=== PATIENT | male | born 1950 | race Caucasian/White ===

== ENCOUNTER 2023-06-22 16:22 | Emergency (ER) | payer BC, SELFPAY ==
[2023-06-22 17:07] VITALS: BP 138/83; PULSE 110; RESP 16; TEMP 36.6; O2SAT 99
--- NOTE | 2023-06-22 17:18 | ED.SKABFB ---
HPI - Skin/Abscess/Foreign Bdy General Chief complaint: Skin/Abscess/Foreign Body Stated complaint: rash rt thigh Time Seen by Provider: 06/22/23 17:40 Source: patient and RN notes reviewed Mode of arrival: ambulatory Limitations: no limitations History of Present Illness HPI narrative: 72 year old male presents with concern for rash in his groin area. He reports it is painful and itchy. He denies fever, chills, bodyaches. He reports serous drainage. H complaint: rash Related Data Home Medications Medication Instructions Recorded Confirmed allopurinol 300 mg tablet mg 06/22/23 benazepril 20 mg tablet mg 06/22/23 ezetimibe 10 mg tablet mg 06/22/23 hydrochlorothiazide 25 mg tablet mg 06/22/23 indomethacin 50 mg capsule mg 06/22/23 pravastatin 40 mg tablet mg 06/22/23 Allergies Allergy/AdvReac Type Severity Reaction Status Date / Time Penicillins Allergy Mild Unknown Unverified 06/22/23 17:29 Review of Systems Review of Systems: CONSTITUTIONAL: Denies malaise, chills, sweats, or fever. EYES: Denies redness, or discharge. ENT: Denies rhinorrhea, congestion, swollen lips, swollen tongue CARDIOVASCULAR: Denies chest pain, palpitations, or edema. RESPIRATORY: Denies cough or dyspnea. GASTROINTESTINAL: Denies abdominal pain, nausea, vomiting SKIN: Reports itchy and painful rash in his groin MUSCULOSKELETAL: Denies joint pain or myalgia. NEUROLOGIC: Denies headache. All systems reviewed & are unremarkable except as noted in HPI and below PMFSH Comments At time of signature, agree with nursing past medical, surgical, social and family history. There is no relevant family history pertinent to the presenting complaint Exam Narrative: GENERAL: Well-appearing, well-nourished, and in no acute distress. HEAD: Normocephalic, atraumatic. EYES: PERRLA, conjunctivae clear, and EOMI. ENT: Mucous membranes moist. Oropharynx without edema, erythema or lesions. NECK: Supple. No lymphadenopathy CHEST: Clear to auscultation. No respiratory distress. HEART: Regular rate and rhythm. SKIN: Warm, dry. Erythematous slightly excoriated rash noted to bilateral groin area, not involving the scrotum, serous drainage noted, no induration, warmth, fluctuation noted NEURO: Alert and oriented x3. PSYCH: Normal mood and affect Course Course Emergency Course: Patient is aware of diagnosis, understands and agrees to treatment plan. Anticipatory guidance given. Patient agrees to follow-up as directed and is aware of reasons to seek care at the emergency department. Portions of this record may have been created with voice recognition software Level of Care: Express Care Visit Vital Signs Vital signs: Vital Signs Temperature 98 F 06/22/23 17:07 Pulse Rate 110 H 06/22/23 17:07 Respiratory Rate 16 06/22/23 17:07 Blood Pressure 138/83 06/22/23 17:07 Pulse Oximetry 99 06/22/23 17:07 Temperature 98 F 06/22/23 17:07 Pulse Rate 110 H 06/22/23 17:07 Respiratory Rate 16 06/22/23 17:07 Blood Pressure 138/83 06/22/23 17:07 Pulse Oximetry 99 06/22/23 17:07 Reviewed. MDM - Skin/Abscess/Foreign Bdy MDM Narrative Medical decision making narrative: Does not appear at this time to be erythema multiforme, bullous, SJS, TEN; no evidence at this time to suggest RMSF, endocarditis or Lyme disease; patient looks well, nontoxic and is tolerating oral intake; no neurologic signs or symptoms; no headache, photophobia or neck pain; afebrile; appropriate for initial outpatient treatment; discussed the importance of follow-up, patient agrees; question, viral exanthema, contact dermatitis, allergic dermatitis, eczema, urticaria, tinea, yeast No soft palate or uvula edema, no tongue, lip edema or other mucosal involvement, no respiratory compromise, no stridor, no wheezing, no wheezing, no history of syncope, no hypotension, no nausea, vomiting, or diarrhea. Instructed patient to go to nearest ER immediately fo
== END 2023-06-22 17:49 | disposition home or self-care (01) ==
PROVIDERS: Emergency Provider Nurse Practitioner; PCP Physician Assistant
DX: B37.2 Candidiasis of skin and nail (principal); I10 Essential (primary) hypertension; M10.9 Gout, unspecified; H26.9 Unspecified cataract
CPT/HCPCS: 99213; G0463